=== PATIENT | male | born 1990 | race Caucasian/White ===

== ENCOUNTER 2018-07-10 18:21 | Emergency (ER) | payer MEDICAID, OTHER ==
[~2018-07-10] VITALS: Ht 182.9 cm; Wt 65.0 kg
[2018-07-10 18:24] VITALS: BP 125/80
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
--- NOTE | 2018-07-10 18:54 | NUR ---
REPORT TO DAMIAN HEREDIA
[2018-07-10] MEDS ORDERED: KETOROLAC 30 MG/1 ML IM ONE (19:00)
[2018-07-10] MEDS ORDERED: METHOCARBAMOL 750 MG TABLET PO ONE (19:00)
[2018-07-10] MEDS ORDERED: METHOCARBAMOL 750 MG TABLET ONE (19:03)
[2018-07-10] MEDS ORDERED: KETOROLAC 30 MG/1 ML ONE (19:03)
== END 2018-07-10 20:40 | disposition home or self-care (01) ==
LOC: ED 20:30
DX: S39.92XA Unspecified injury of lower back, initial encounter (principal); Y00.XXXA Assault by blunt object, initial encounter; Y93.89 Activity, other specified; Y92.410 Unspecified street and highway as the place of occurrence of the external cause; Y99.8 Other external cause status
CPT/HCPCS: 71101; 72072; 72110; 96372; 99283; J1885

== ENCOUNTER 2019-09-05 10:22 | Emergency (ER) | payer MEDICAID ==
[~2019-09-05] VITALS: Ht 175.3 cm; Wt 68.0 kg
[2019-09-05] MEDS ORDERED: CEFAZOLIN 1,000 MG IM ONE (11:00)
[2019-09-05] MEDS ORDERED: IBUPROFEN 600 MG TABLET PO ONE (11:00)
[2019-09-05] MEDS ORDERED: DIPH,PERTUSS(ACELL),TET VAC/PF 0.5 ML IM-VACC ONE ×2 (11:00→11:15)
[2019-09-05] MEDS ORDERED: CEFAZOLIN 1,000 MG ONE (11:14)
[2019-09-05] MEDS ORDERED: IBUPROFEN 600 MG TABLET ONE (11:14)
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
[2019-09-05 12:20] VITALS: BP 124/54
== END 2019-09-05 12:24 | disposition home or self-care (01) ==
LOC: ED 11:40
DX: S30.810A Abrasion of lower back and pelvis, initial encounter (principal); L03.115 Cellulitis of right lower limb; X58.XXXA Exposure to other specified factors, initial encounter; Z88.9 Allergy status to unspecified drugs, medicaments and biological substances; Y93.89 Activity, other specified; Y92.89 Other specified places as the place of occurrence of the external cause; Y99.8 Other external cause status
CPT/HCPCS: 73590; 90471; 90715; 96372; 99284; J0690